=== PATIENT | male | born 1950 | race Two or more races ===

== ENCOUNTER 2020-01-07 18:58 | Emergency (ER) | payer MEDICARE, OTHER ==
[~2020-01-07] VITALS: Ht 182.9 cm; Wt 102.1 kg
[2020-01-07 19:10] VITALS: BP 122/72
[2020-01-07] MEDS ORDERED: TETRACAINE HCL 0.5% OPHTALMIC 15 ML BOTTLE OP ONE (20:00)
== END 2020-01-07 19:58 | disposition home or self-care (01) ==
LOC: ER 19:00
DX: T26.82XA Corrosions of other specified parts of left eye and adnexa, initial encounter (principal); T26.81XA Corrosions of other specified parts of right eye and adnexa, initial encounter; I10 Essential (primary) hypertension; E78.5 Hyperlipidemia, unspecified; E11.9 Type 2 diabetes mellitus without complications; Z98.890 Other specified postprocedural states; Y93.89 Activity, other specified; Y92.89 Other specified places as the place of occurrence of the external cause; Y99.8 Other external cause status